=== PATIENT | male | born 1980 | race Caucasian/White ===

== ENCOUNTER 2022-09-14 09:04 | Emergency (ER) | payer BC ==
[2022-09-14] MEDS: Lidocaine/Epineph/Tetracaine 3 ML Syringe TOP ONE (10:03)
[2022-09-14] MEDS: Diphtheria,Pertussis(Acell),Tetanus Vaccine 0.5 ML Syringe IM ONE (10:03)
[2022-09-14] MEDS: Ibuprofen 800 MG Tab PO ONE (10:03)
== END 2022-09-14 11:36 | disposition home or self-care (01) ==
LOC: MW.ED 09:04
DX: S61.402A Unspecified open wound of left hand, initial encounter (principal); Z23 Encounter for immunization; W26.8XXA Contact with other sharp object(s), not elsewhere classified, initial encounter
CPT/HCPCS: 73120; 90471; 90715; 99283; A9270